=== PATIENT | male | born 1985 | race Caucasian/White ===

== ENCOUNTER 2016-12-09 05:36 | Observation (INO) | payer OTHER ==
[2016-12-06 14:23] LABS: ANION GAP 7 mmol/L (8-16); CALCIUM, TOTAL 9.6 mg/dL (8.8-10.5); CARBON DIOXIDE 30 mmol/L (22-29); CHLORIDE 101 mmol/L (98-107); CREATININE 1.01 mg/dL (0.60-1.30); GLOMERULAR FILTR. RATE CALC > 60 mL/min (>60); POTASSIUM 4.5 mmol/L (3.5-5.1); SODIUM SERUM 138 mmol/L (136-145); UREA NITROGEN, BLOOD 17 mg/dL (7-18)
[2016-12-06 14:24] LABS: BASOPHILS # (AUTO) 0.04 K/uL (0.00-0.20); BASOPHILS % (AUTO) 0.4 % (0.0-2.0); EOSINOPHILS # (AUTO) 0.06 K/uL (0.00-0.70); EOSINOPHILS % (AUTO) 0.53 % (1.0-6.0); HEMOGLOBIN 16.4 g/dL (13.5-17.5); LYMPHOCYTES # (AUTO) 3.4 K/uL (1.0-4.8); MEAN CORPUSCULAR HEMOGLOBIN 29.9 pg (26.0-34.0); MEAN CORPUSCULAR HGB CONC 33.5 G/dL (31.0-37.0); MEAN CORPUSCULAR VOLUME 89 fL (80-100); MONOCYTES # (AUTO) 0.8 K/uL (0.1-1.0); MONOCYTES % (AUTO) 6.6 % (2.0-9.0); NEUTROPHILS # (AUTO) 7.5 K/uL (1.8-7.7); NEUTROPHILS % (AUTO) 63.6 % (40.0-70.0); PLATELET COUNT (AUTO) 275 K/uL (150-450); RED BLOOD CELL COUNT(AUTO) 5.49 MIL/uL (4.50-5.90); RED CELL DISTRIBUTION WIDTH 13.3 % (11.5-14.5); WHITE BLOOD COUNT (AUTO) 11.7 K/uL (4.5-11.0)
[2016-12-06 14:29] LABS: ALANINE AMINOTRANSFERASE 33 U/L (12-78); ALBUMIN 3.8 g/dL (3.4-5.0); ASPARTATE AMINOTRANSFERASE 15 U/L (15-37); BILIRUBIN,TOTAL 0.3 mg/dL (0.1-1.0)
[2016-12-06 14:49] LABS: INR 0.9 (0.9-1.1); PROTHROMBIN TIME 9.5 SEC (9.4-11.6)
[~2016-12-09] VITALS: Ht 182.9 cm; Wt 96.4 kg
[~2016-12-09 05:36] MED LIST: CeFAZolin 2 GM/DEXTROSE 50 ML IV ONE; DEXAMETHASONE SOD PHOS 4 MG/ML VIAL IVP ONE; FentaNYL CITRATE-PF 250 MCG/5 ML VIAL IVP ONE; KETAMINE HCL 50 MG/ML 10 ML VIAL IVP ONE; LIDOCAINE HCL/PF 2% 5 ML VIAL IM ONE; MIDAZOLAM HCL 2 MG/2 ML VIAL IVP ONE; ONDANSETRON HCL 4 MG/2 ML VIAL IVP ONE; PROPOFOL 1% 20 ML VIAL IVP ONE; RINGERS SOLUTION,LACTATED 1,000 ML IV ONE; SUCCINYLCHOLINE CHLORIDE 20 MG/ML 10 ML VIAL IVP ONE
[2016-12-09] MEDS ORDERED: BUPIVACAINE HCL/PF 0.5% 30 ML VIAL ONE (05:51)
[2016-12-09] MEDS ORDERED: ZOLPIDEM TARTRATE 5 MG TABLET PO PRN (06:00)
[2016-12-09] MEDS ORDERED: MEPERIDINE-PF 25 MG/ML SYRINGE IVP PRN (06:00)
[2016-12-09] MEDS ORDERED: CeFAZolin 1 GM/DEXTROSE 50 ML IV ONE (06:00)
[2016-12-09] MEDS ORDERED: HYDROmorphone 2 MG/ML SYRINGE IVP PRN ×2 (06:00→16:00)
[2016-12-09] MEDS ORDERED: PROMETHAZINE HCL 25 MG/ML VIAL IM PRN (06:00)
[2016-12-09] MEDS ORDERED: ACETAMINOPHEN 1000 MG/ISO-OSM 100 ML IV ONE (06:02)
[2016-12-09] MEDS: ACETAMINOPHEN 1000 MG/ISO-OSM 100 ML IV SCH ×4 (06:05→23:54)
[2016-12-09 06:08] LABS: GLUCOSE,POINT OF CARE 186 MG/DL (70-110)
[2016-12-09] MEDS ORDERED: ASPI81 PO (06:18)
[2016-12-09] MEDS ORDERED: LISI-661 PO (06:18)
[2016-12-09] MEDS ORDERED: LINA5TAB PO (06:18)
[2016-12-09] MEDS ORDERED: METF500T4 PO (06:18)
[2016-12-09] MEDS ORDERED: ZOLPIDEM TARTRATE 10 MG TABLET PO PRN (06:45)
[2016-12-09] MEDS ORDERED: PROMETHAZINE HCL 12.5 MG in SODIUM CHLORIDE 0.9% 50 ML IV PRN (06:45)
[2016-12-09] MEDS ORDERED: BENZOCAINE/MENTHOL LOZENGE [8 LOZENGES/PACKET] PO PRN (06:45)
[2016-12-09] MEDS: OXYGEN THERAPY IH SCH ×2 (08:00→20:00)
[2016-12-09] MEDS: FentaNYL CITRATE-PF 100 MCG/2 ML VIAL IVP PRN ×2 (08:49→08:54)
[2016-12-09] MEDS ORDERED: FentaNYL CITRATE-PF 100 MCG/2 ML VIAL ONE (08:50)
[2016-12-09] MEDS ORDERED: RINGERS SOLUTION,LACTATED 500 ML IV ONE (09:43)
[2016-12-09] MEDS ORDERED: HYDROmorphone 2 MG/ML SYRINGE ONE (09:49)
[2016-12-09 10:27] VITALS: BP 144/89
[2016-12-09] MEDS ORDERED: DEXTROSE 50%-WATER 25 GM/50 ML SYRINGE IVP PRN (10:45)
[2016-12-09] MEDS: HYDROmorphone 2 MG/ML SYRINGE IVP PRN ×2 (10:48→15:03)
[2016-12-09] MEDS: ONDANSETRON HCL 4 MG/2 ML VIAL IVP PRN ×2 (10:54→15:03)
[2016-12-09] MEDS: INSULIN ASPART 100 UNITS/ML SQ PRN ×3 (11:28→20:50)
[2016-12-09 11:32] VITALS: BP 152/73
[2016-12-09] MEDS: DOCUSATE SODIUM 100 MG CAPSULE PO SCH ×2 (11:50→20:48)
[2016-12-09 13:22] LABS: GLUCOSE,POINT OF CARE 235 MG/DL (70-110)
[2016-12-09 14:00] VITALS: BP 144/83
[2016-12-09] MEDS: CARISOPRODOL 350 MG TABLET PO PRN ×2 (14:41→20:48)
[2016-12-09] MEDS ORDERED: LinaGLIPtin 5 MG TABLET PO SCH (14:48)
[2016-12-09] MEDS ORDERED: LISINOPRIL 10 MG TABLET PO SCH (14:49)
[2016-12-09 15:10] VITALS: BP 144/82
[2016-12-09 15:41] LABS: GLUCOSE,POINT OF CARE 281 MG/DL (70-110)
[2016-12-09] MEDS ORDERED: HYDROmorphone 2 MG/ML SYRINGE IVP ONE (15:45)
[2016-12-09 17:32] LABS: GLUCOSE,POINT OF CARE 288 MG/DL (70-110)
[2016-12-09 18:00] VITALS: BP 136/65
[2016-12-09 19:43] VITALS: BP 135/72
[2016-12-09 20:16] LABS: GLUCOSE,POINT OF CARE 365 MG/DL (70-110)
[2016-12-09] MEDS: LinaGLIPtin 5 MG TABLET PO SCH (20:48)
[2016-12-09] MEDS: LISINOPRIL 10 MG TABLET PO SCH (20:48)
[2016-12-10] VITALS: BP 134/65
[2016-12-10] MEDS ORDERED: HYDROCODONE/ACETAMINOPHEN 10-325 MG TABLET PO PRN ×2 (01:15→12:00)
[2016-12-10] MEDS: ONDANSETRON HCL 4 MG/2 ML VIAL IVP PRN (01:26)
[2016-12-10] MEDS: OxyCODONE HCL 10 MG IR TABLET PO PRN ×2 (01:49→05:57)
[2016-12-10 05:53] VITALS: BP 138/78
[2016-12-10] MEDS: ACETAMINOPHEN 1000 MG/ISO-OSM 100 ML IV SCH (06:05)
[2016-12-10 06:16] LABS: GLUCOSE,POINT OF CARE 230 MG/DL (70-110)
[2016-12-10] MEDS: INSULIN ASPART 100 UNITS/ML SQ PRN (06:20)
[2016-12-10 07:36] VITALS: BP 129/74
[2016-12-10] MEDS ORDERED: MetFORMIN HCL 500 MG TABLET PO SCH (08:00)
[2016-12-10] MEDS: OXYGEN THERAPY IH SCH (08:00)
[2016-12-10] MEDS ORDERED: ASPIRIN 81 MG CHEWABLE TABLET PO SCH (09:00)
[2016-12-10] MEDS: LinaGLIPtin 5 MG TABLET PO SCH (09:00)
[2016-12-10] MEDS: LISINOPRIL 10 MG TABLET PO SCH (09:00)
[2016-12-10] MEDS ORDERED: GABAPENTIN 100 MG CAPSULE PO SCH (09:00)
[2016-12-10] MEDS: DOCUSATE SODIUM 100 MG CAPSULE PO SCH (09:20)
== END 2016-12-10 10:34 | disposition home or self-care (01) ==
LOC: 4E 05:36
PROVIDERS: ADMIT Orthopaedic Surgery Orthopaedic Surgery of the Spine; ATTEND Orthopaedic Surgery Orthopaedic Surgery of the Spine
DX: M50.222 Other cervical disc displacement at C5-C6 level (principal); E11.9 Type 2 diabetes mellitus without complications; I10 Essential (primary) hypertension
CPT/HCPCS: 20930; 22554; 22853; 36415; 80053; 82962 ×2; 85025; 85610; 85730; 87081; 93005; 96372 ×2; 96374; 96375; 96376 ×2; 97161; 97166; 97535; C1713; C1768; C1769; G0238; G0378 ×2; J0131 ×2; J0330; J0690; J1100; J1170; J2250; J2405 ×2; J2550; J2704; J3010 ×2; J3490 ×2; J7120 ×2; Z7506; Z7508; Z7610 ×3